=== PATIENT | female | born 1955 | race Two or more races ===

== ENCOUNTER 2017-08-19 13:17 | Outpatient (CLI) | payer OTHER ==
[~2017-08-19 13:17] MED LIST: LAMISIL250 MG PO
== END 2017-08-19 13:23 | disposition home or self-care (01) ==
LOC: MAMO-SONO 13:17
DX: N60.11 Diffuse cystic mastopathy of right breast (principal); N60.12 Diffuse cystic mastopathy of left breast; Z12.31 Encounter for screening mammogram for malignant neoplasm of breast

== ENCOUNTER → 2017-08-23 | Outpatient (CLI) | payer OTHER | END | disposition home or self-care (01) | LOC: SONOGRAMA 12:57 | DX: N60.11 Diffuse cystic mastopathy of right breast (principal); N60.12 Diffuse cystic mastopathy of left breast ==

== ENCOUNTER 2018-03-06 08:29 | Outpatient (CLI) | payer OTHER | END 2018-03-06 08:34 | disposition home or self-care (01) | LOC: SONOGRAMA 08:29 | DX: N60.11 Diffuse cystic mastopathy of right breast (principal); N60.12 Diffuse cystic mastopathy of left breast ==

== ENCOUNTER → 2018-08-22 | Outpatient (CLI) | payer OTHER | END | disposition home or self-care (01) | LOC: MAMO-SONO 08:47 | DX: N60.11 Diffuse cystic mastopathy of right breast (principal); N60.12 Diffuse cystic mastopathy of left breast; Z12.31 Encounter for screening mammogram for malignant neoplasm of breast ==

== ENCOUNTER → 2018-09-02 | Outpatient (CLI) | payer OTHER | END | disposition home or self-care (01) | LOC: NUCLEAR 11:00 | DX: M81.0 Age-related osteoporosis without current pathological fracture (principal) ==

== ENCOUNTER 2018-09-15 08:06 | Outpatient (CLI) | payer OTHER | END 2018-09-15 13:45 | disposition home or self-care (01) | LOC: TOM 08:06 | DX: M19.032 Primary osteoarthritis, left wrist (principal); Z86.73 Personal history of transient ischemic attack (TIA), and cerebral infarction without residual deficits ==

== ENCOUNTER 2018-12-12 08:26 | Outpatient (CLI) | payer OTHER | END 2018-12-12 08:38 | disposition home or self-care (01) | LOC: NUCLEAR 08:26 | DX: Z86.73 Personal history of transient ischemic attack (TIA), and cerebral infarction without residual deficits (principal) ==

== ENCOUNTER 2019-09-29 09:25 | Outpatient (CLI) | payer OTHER | END 2019-09-29 09:27 | disposition home or self-care (01) | LOC: MAMO-SONO 09:25 | PROVIDERS: ATTEND Surgery | DX: Z12.31 Encounter for screening mammogram for malignant neoplasm of breast (principal); N60.11 Diffuse cystic mastopathy of right breast; N60.12 Diffuse cystic mastopathy of left breast ==

== ENCOUNTER 2020-10-04 07:23 | Outpatient (CLI) | payer OTHER | END 2020-10-04 07:40 | disposition home or self-care (01) | LOC: MAMO-SONO 07:23 | PROVIDERS: ATTEND Surgery | DX: N60.11 Diffuse cystic mastopathy of right breast (principal); N60.12 Diffuse cystic mastopathy of left breast; Z12.31 Encounter for screening mammogram for malignant neoplasm of breast; Z87.898 Personal history of other specified conditions ==

== ENCOUNTER 2020-12-19 10:21 | Outpatient (CLI) | payer OTHER | END 2020-12-19 10:25 | disposition home or self-care (01) | LOC: NUCLEAR 10:21 | PROVIDERS: ATTEND Internal Medicine | DX: I65.29 Occlusion and stenosis of unspecified carotid artery (principal); R00.2 Palpitations; R00.0 Tachycardia, unspecified ==

== ENCOUNTER → 2021-03-09 13:49 | Outpatient (CLI) | payer OTHER | END | disposition home or self-care (01) | LOC: NUCLEAR 03-03 13:30 | PROVIDERS: ATTEND Internal Medicine | DX: M81.0 Age-related osteoporosis without current pathological fracture (principal) ==

== ENCOUNTER → 2021-10-18 10:22 | Outpatient (CLI) | payer OTHER | END | disposition home or self-care (01) | LOC: NUCLEAR 10:00 | PROVIDERS: ATTEND Orthopaedic Surgery Sports Medicine | DX: I82.401 Acute embolism and thrombosis of unspecified deep veins of right lower extremity (principal) ==

== ENCOUNTER 2021-11-07 13:08 | Outpatient (CLI) | payer OTHER | END 2021-11-07 13:16 | disposition home or self-care (01) | LOC: MAMO-SONO 13:08 | PROVIDERS: ATTEND Surgery | DX: Z12.31 Encounter for screening mammogram for malignant neoplasm of breast (principal); N60.11 Diffuse cystic mastopathy of right breast; N60.12 Diffuse cystic mastopathy of left breast ==

== ENCOUNTER 2022-11-20 09:53 | Outpatient (CLI) | payer OTHER | END 2022-11-20 14:49 | disposition home or self-care (01) | LOC: MAMO-SONO 09:53 | PROVIDERS: ATTEND Surgery | DX: N60.11 Diffuse cystic mastopathy of right breast (principal); N60.12 Diffuse cystic mastopathy of left breast; Z12.31 Encounter for screening mammogram for malignant neoplasm of breast ==

== ENCOUNTER 2023-11-25 08:03 | Outpatient (CLI) | payer OTHER ==
[~2023-11-25 08:03] MED LIST changes: +ALBUTEROL0.63 MG/3 IH; +BUDEO.25 IH; +IOPHEN DM-100 MG/5 M PO; +LEVAQUIN500 MG PO
== END 2023-11-25 08:11 | disposition home or self-care (01) ==
LOC: MAMO-SONO 08:03
PROVIDERS: ATTEND Surgery
DX: N60.11 Diffuse cystic mastopathy of right breast (principal); N60.12 Diffuse cystic mastopathy of left breast; Z12.31 Encounter for screening mammogram for malignant neoplasm of breast

== ENCOUNTER → 2024-06-05 | Outpatient (CLI) | payer OTHER | END | disposition home or self-care (01) | LOC: NUCLEAR 13:00 | PROVIDERS: ATTEND Specialist | DX: M81.0 Age-related osteoporosis without current pathological fracture (principal) ==

== ENCOUNTER 2024-12-08 09:34 | Outpatient (CLI) | payer OTHER | END 2024-12-08 09:38 | disposition home or self-care (01) | LOC: MAMO-SONO 09:34 | PROVIDERS: ATTEND Obstetrics & Gynecology Maternal & Fetal Medicine | DX: N64.4 Mastodynia (principal); N63.0 Unspecified lump in unspecified breast; N60.11 Diffuse cystic mastopathy of right breast; Z12.31 Encounter for screening mammogram for malignant neoplasm of breast ==